=== PATIENT | male | born 2000 | race Caucasian/White ===

== ENCOUNTER 2020-10-09 08:37 | Inpatient (IN) | payer MEDICAID, OTHER ==
[~2020-10-09] VITALS: Ht 180.3 cm; Wt 103.2 kg
[2020-10-09] MEDS ORDERED: DiphenhydrAMINE HCL 50 MG/ML VIAL IM ONE (09:15)
[2020-10-09] MEDS ORDERED: LORazepam 2 MG/ML VIAL IM ONE (09:15)
[2020-10-09] MEDS ORDERED: HALOPERIDOL LACTATE 5 MG/ML VIAL IM ONE (09:15)
[2020-10-09] MEDS ORDERED: RISP1TAB89 PO (09:18)
[2020-10-09 11:36] LABS: ANION GAP 7 mmol/L (8-16); CALCIUM, TOTAL 8.9 mg/dL (8.8-10.5); CARBON DIOXIDE 22 mmol/L (22-29); CHLORIDE 103 mmol/L (98-107); CREATININE 0.84 mg/dL (0.60-1.30); GLOMERULAR FILTR. RATE CALC > 60 mL/min (>60); GLUCOSE,RANDOM 90 mg/dL (70-110); POTASSIUM 5.1 mmol/L (3.5-5.1); SODIUM SERUM 132 mmol/L (136-145); UREA NITROGEN, BLOOD 13 mg/dL (7-18)
[2020-10-09 11:40] LABS: ALANINE AMINOTRANSFERASE 44 U/L (12-78); ALBUMIN 3.8 g/dL (3.4-5.0); ALKALINE PHOSPHATASE 60 U/L (46-116); ASPARTATE AMINOTRANSFERASE 59 U/L (15-37); BILIRUBIN,TOTAL 0.8 mg/dL (0.1-1.0); TOTAL PROTEIN, SERUM 7.4 g/dL (6.4-8.2)
[2020-10-09 12:06] LABS: COVID AG,FIA SOURCE NASOPHARYNGEAL
[2020-10-09 12:28] LABS: AMPHET/METH SCREEN,URINE NEGATIVE (NEGATIVE); BARBITURATE SCREEN, URINE NEGATIVE (NEGATIVE); BENZODIAZEPINES SCREEN,URINE NEGATIVE (NEGATIVE); CANNABINOID SCREEN,URINE POSITIVE (NEGATIVE); COCAINE SCREEN,URINE NEGATIVE (NEGATIVE); METHADONE SCREEN, URINE NEGATIVE (NEGATIVE); OPIATE SCREEN,URINE NEGATIVE (NEGATIVE); PHENCYCLIDINE SCREEN,URINE NEGATIVE (NEGATIVE)
[2020-10-09 16:10] VITALS: BP 140/87
[2020-10-10 00:28] VITALS: BP 132/76
[2020-10-10 08:54] VITALS: BP 143/91
[2020-10-10] MEDS ORDERED: ONDANSETRON HCL 4 MG TABLET PO PRN (09:00)
[2020-10-10] MEDS ORDERED: NICOTINE 14 MG/24 HOUR PATCH TD PRN (09:00)
[2020-10-10] MEDS ORDERED: DOCUSATE SODIUM 100 MG CAPSULE PO PRN (09:00)
[2020-10-10] MEDS ORDERED: ACETAMINOPHEN 325 MG TABLET PO PRN (09:00)
[2020-10-10] MEDS ORDERED: ALBUTEROL SULFATE HFA 90 MCG/PUFF 8 GM INHALER IH PRN (09:00)
[2020-10-10] MEDS ORDERED: CloNIDine HCL 0.1 MG TABLET PO PRN (09:00)
[2020-10-10] MEDS ORDERED: MAGNESIUM HYDROXIDE SUSPENSION 30 ML UDCUP PO PRN (09:00)
[2020-10-10] MEDS ORDERED: LOPERAMIDE HCL 2 MG CAPSULE PO PRN (09:00)
[2020-10-10] MEDS ORDERED: MAG HYDROX/AL HYDROX/SIMETH ES 30 ML SUSPENSION UDCUP PO PRN (09:00)
[2020-10-10] MEDS ORDERED: IBUPROFEN 400 MG TABLET PO PRN (09:00)
[2020-10-10] MEDS ORDERED: PETROLATUM,WHITE 28 GM JELLY TP PRN (09:00)
[2020-10-10] MEDS ORDERED: GuaiFENesin/D-METHORPHAN [SUGAR-FREE] 200-20MG/10 ML SYRUP UDCUP PO PRN (09:00)
[2020-10-10] MEDS: RisperiDONE 1 MG TABLET PO SCH ×3 (11:15→21:00)
[2020-10-11] MEDS: RisperiDONE 1 MG TABLET PO SCH ×2 (08:55→20:50)
[2020-10-12] MEDS: RisperiDONE 1 MG TABLET PO SCH ×2 (08:57→20:47)
[2020-10-13] MEDS: RisperiDONE 1 MG TABLET PO SCH ×2 (08:48→20:24)
[2020-10-13] MEDS ORDERED: LORazepam 2 MG/ML VIAL ONE (09:18)
[2020-10-13] MEDS ORDERED: DiphenhydrAMINE HCL 50 MG/ML VIAL ONE (09:18)
[2020-10-13] MEDS ORDERED: HALOPERIDOL LACTATE 5 MG/ML VIAL ONE (09:19)
[2020-10-13] MEDS ORDERED: LORazepam 2 MG/ML VIAL IM ONE (09:20)
[2020-10-13] MEDS ORDERED: DiphenhydrAMINE HCL 50 MG/ML VIAL IM ONE (09:20)
[2020-10-13] MEDS ORDERED: HALOPERIDOL LACTATE 5 MG/ML VIAL IM ONE (09:20)
[2020-10-13 10:37] VITALS: BP 123/72
[2020-10-13] MEDS: ZOLPIDEM TARTRATE 10 MG TABLET PO PRN (20:24)
[2020-10-14] MEDS: RisperiDONE 1 MG TABLET PO SCH ×2 (08:46→20:20)
[2020-10-14] MEDS: ZOLPIDEM TARTRATE 10 MG TABLET PO PRN (20:20)
[2020-10-15] MEDS: RisperiDONE 1 MG TABLET PO SCH ×2 (09:21→20:54)
[2020-10-16] MEDS: RisperiDONE 1 MG TABLET PO SCH (08:47)
[2020-10-16] MEDS ORDERED: RisperiDONE 1 MG TABLET PO ONE (09:30)
[2020-10-16] MEDS ORDERED: HALOPERIDOL LACTATE 5 MG/ML VIAL ONE (12:08)
[2020-10-16] MEDS ORDERED: LORazepam 2 MG/ML VIAL ONE (12:08)
[2020-10-16] MEDS ORDERED: LORazepam 2 MG/ML VIAL IM ONE (12:15)
[2020-10-16] MEDS ORDERED: HALOPERIDOL LACTATE 5 MG/ML VIAL IM ONE (12:15)
[2020-10-16] MEDS ORDERED: DiphenhydrAMINE HCL 50 MG/ML VIAL IM ONE (12:15)
[2020-10-16] MEDS: RisperiDONE 2 MG TABLET PO SCH (20:03)
[2020-10-16] MEDS: ZOLPIDEM TARTRATE 10 MG TABLET PO PRN (21:00)
[2020-10-17] MEDS: RisperiDONE 2 MG TABLET PO SCH ×2 (08:48→20:19)
[2020-10-17] MEDS: LORazepam 2 MG TABLET PO PRN ×2 (16:17→20:19)
[2020-10-17] MEDS: ZOLPIDEM TARTRATE 10 MG TABLET PO PRN (20:37)
[2020-10-18] MEDS: LORazepam 2 MG TABLET PO PRN ×4 (08:09→20:54)
[2020-10-18] MEDS: RisperiDONE 2 MG TABLET PO SCH ×2 (08:09→20:54)
[2020-10-18 08:41] VITALS: BP 154/89
[2020-10-18] MEDS: HALOPERIDOL 5 MG TABLET PO PRN (14:13)
[2020-10-18] MEDS: ZOLPIDEM TARTRATE 10 MG TABLET PO PRN (20:54)
[2020-10-19] MEDS: RisperiDONE 2 MG TABLET PO SCH ×2 (08:53→20:26)
[2020-10-19] MEDS: LORazepam 2 MG TABLET PO PRN ×3 (08:56→18:12)
[2020-10-19] MEDS: HALOPERIDOL 5 MG TABLET PO PRN ×2 (13:23→18:12)
[2020-10-19] MEDS: ZOLPIDEM TARTRATE 10 MG TABLET PO PRN (20:26)
[2020-10-20] MEDS: HALOPERIDOL 5 MG TABLET PO PRN (09:07)
[2020-10-20] MEDS: LORazepam 2 MG TABLET PO PRN ×3 (09:07→23:28)
[2020-10-20] MEDS: RisperiDONE 2 MG TABLET PO SCH ×2 (09:07→20:39)
[2020-10-20] MEDS: ZOLPIDEM TARTRATE 10 MG TABLET PO PRN (20:39)
[2020-10-21] MEDS: LORazepam 2 MG TABLET PO PRN ×4 (03:45→17:25)
[2020-10-21] MEDS: RisperiDONE 2 MG TABLET PO SCH ×2 (08:49→20:14)
[2020-10-21] MEDS: HALOPERIDOL 5 MG TABLET PO PRN ×3 (08:49→17:25)
[2020-10-21] MEDS: ZOLPIDEM TARTRATE 10 MG TABLET PO PRN (20:14)
[2020-10-22] MEDS: RisperiDONE 2 MG TABLET PO SCH ×2 (08:47→20:40)
[2020-10-22] MEDS: LORazepam 2 MG TABLET PO PRN ×2 (08:59→16:45)
[2020-10-22] MEDS: HALOPERIDOL 5 MG TABLET PO PRN (16:45)
[2020-10-22] MEDS: ZOLPIDEM TARTRATE 10 MG TABLET PO PRN (20:39)
[2020-10-23] MEDS: RisperiDONE 2 MG TABLET PO SCH ×2 (08:33→20:30)
[2020-10-23] MEDS ORDERED: RISP2TAB76 PO (09:49)
[2020-10-23 10:17] LABS: COVID AG,FIA SOURCE NASAL SWAB
[2020-10-23] MEDS: HALOPERIDOL 5 MG TABLET PO PRN (16:21)
[2020-10-23] MEDS: LORazepam 2 MG TABLET PO PRN (16:21)
[2020-10-23] MEDS: ZOLPIDEM TARTRATE 10 MG TABLET PO PRN (20:30)
[2020-10-24] MEDS: RisperiDONE 2 MG TABLET PO SCH ×2 (08:53→20:21)
[2020-10-25] MEDS: RisperiDONE 2 MG TABLET PO SCH ×2 (08:55→20:50)
[2020-10-25] MEDS: LORazepam 2 MG TABLET PO PRN (08:55)
[2020-10-26] MEDS: RisperiDONE 2 MG TABLET PO SCH (08:38)
[2020-10-26 08:52] VITALS: BP 131/81
== END 2020-10-26 16:42 | disposition home or self-care (01) | DRG 750 ==
LOC: EMS 08:42 → B3A 12:26
DX: F25.0 Schizoaffective disorder, bipolar type (principal); F12.10 Cannabis abuse, uncomplicated; K59.00 Constipation, unspecified; Z79.899 Other long term (current) drug therapy; Z20.822 Contact with and (suspected) exposure to COVID-19
CPT/HCPCS: 80053; 99285; G0480; J1200; J1630; J2060